=== PATIENT | female | born 1985 | race Caucasian/White ===

== ENCOUNTER 2021-09-26 06:30 | Day surgery (SDC) | payer BC ==
[2021-09-24 14:43] LABS: Absolute Lymphocytes (CBC) 2.6 K/uL (0.7-4.9); Basophils % 0.8 % (0-1.3); Hematocrit 35.9 % (36.0-45.0); Lymphocytes % 34.4 % (15.3-44.8); MPV 7.8 fL (7.6-11.3); RBC Red Blood Cell Count 4.58 M/uL (3.86-4.86)
[2021-09-24 14:46] LABS: ALT/SGPT 21 U/L (12-78); AST/SGOT 13 U/L (15-37); Albumin 3.6 g/dL (3.4-5.0); Alkaline Phosphatase 79 U/L (45-117); Amylase 40 U/L (25-115); BUN Blood Urea Nitrogen 9 mg/dL (7-18); Bicarbonate 27 mmol/L (21-32); Bilirubin Direct < 0.1 mg/dL (0-0.2); Bilirubin Total 0.2 mg/dL (0.2-1.0); Glucose Level 132 mg/dL (74-106); Potassium 3.7 mmol/L (3.5-5.1); Protein, Total 7.9 g/dL (6.4-8.2); Sodium Level 142 mmol/L (136-145)
[2021-09-26 06:44] LABS: Specific Gravity 1.015 (1.005-1.030)
[2021-09-26] MEDS ORDERED: Ringers Lactate 1,000 ML IV ONE (06:44)
[2021-09-26] MEDS ORDERED: propofoL 200 MG/20 ML VIAL IV ONE (06:56)
[2021-09-26] MEDS ORDERED: MIDAZOLAM HCL 2 MG/2 ML INJ ONE (06:56)
[2021-09-26] MEDS ORDERED: LIDOCAINE 1% MPF 2 ML AMPULE ONE (06:56)
[2021-09-26] MEDS ORDERED: FENTANYL CITR 100 MCG/2 ML ONE ×2 (06:56→08:40)
[2021-09-26] MEDS ORDERED: ROCURONIUM 50 MG/5 ML VIAL IV ONE (07:02)
[2021-09-26] MEDS ORDERED: GLYCOPYRROLATE 0.2 MG/ML SYR ONE ×2 (07:02→08:02)
[2021-09-26] MEDS ORDERED: BUPIVACAINE 0.5% PF 10 ML VIAL ONE (07:04)
[2021-09-26] MEDS: CEFOXITIN/NS 1gm 1 GM/50 ML BAG ONE ×2 (07:08→07:50)
[2021-09-26] MEDS ORDERED: ACETAMINOPHEN 500 MG TAB ONE (07:16)
[2021-09-26] MEDS ORDERED: CELECOXIB 100 MG CAPSULE ONE (07:16)
[2021-09-26] MEDS ORDERED: KETOROLAC 30 MG/ML INJ ONE (07:46)
[2021-09-26] MEDS ORDERED: dexAMETHasone 10 MG/ML VIAL ONE (07:46)
[2021-09-26] MEDS ORDERED: NEOSTIGMINE 1 MG/ML -5 ML ONE (08:40)
[2021-09-26] MEDS: HYDROMORPHONE HCL 1 MG/ML INJ ONE ×4 (09:06→09:21)
[2021-09-26 09:25] VITALS: O2SAT 98
[2021-09-26] MEDS ORDERED: HYDROMORPHONE HCL 1 MG/ML INJ ONE (09:28)
[2021-09-26 09:44] VITALS: TEMP 97.4
[2021-09-26] MEDS ORDERED: HYDROCODONE/APAP 7.5/325 MG TAB ONE (10:33)
--- NOTE | 2021-09-26 10:35 | OP ---
Date of Procedure: 09/26/2021 Surgeon: Jonathan Self MD [employer] Developer: ANI Jacobs. Preoperative Diagnoses: Chronic cholecystitis and cholelithiasis. Postoperative Diagnoses: Chronic cholecystitis and cholelithiasis with adhesions. Procedures Performed: Laparoscopic cholecystectomy and lysis of adhesions. Estimated Blood Loss: Minimal. Specimen: Gallbladder. Finding: As above. Anesthesia: General. Complications: None. Disposition: The patient tolerated the procedure in stable condition and taken to Recovery in good g eneral condition. Procedure In Detail: The patient was patient brought to the OR, placed in supine position. General anesthesia begun. The patient was prepped and draped in the usual sterile fashion. Marcaine 0.5% wa s infiltrated locally for postop pain control. A 15 blade was used to make a 1 cm infraumbilical mid line incision. Subcutaneous tissue was divided. Fascia was identified, divided. A #1 Vicryl stay s uture was placed. Peritoneal cavity entered with sharp and blunt dissection. A 12 mm trocar was rolo graeme into the peritoneal cavity under direct vision. Pneumoperitoneum was established. Three 5 mm tr ocars were placed, 1 in the epigastrium just to the right of midline and 2 in the right subcostal reg ion. Laparoscopy revealed extensive adhesions to the gallbladder and the liver near by and these wer e taken down with sharp and blunt dissection and cautery, and bleeding was controlled with cautery. Then, fundus was identified and retracted superiorly. Approximately 10 minutes of lysis of adhesion was performed and then the fundus was retracted superiorly. Infundibulum was identified and retracte d inferolaterally. Cystic duct and cystic artery were clearly identified with sharp and blunt dissec tion. Clips were placed. Both structures were divided. Cautery was used to remove the gallbladder from the liver bed. Bleeding on the liver bed was controlled with cautery. Gallbladder was retrieve d through the umbilicus via an EndoCatch bag. Right upper quadrant was irrigated. Effluent was sofia r. No evidence of bleeding or bile leakage appreciated. Subsequently, all trocars were removed unde r direct vision. Stay sutures were tied to each other to approximate the fascial defect. The subcut aneous wounds were irrigated. Bleeding controlled with cautery. A 3-0 chromic used to approximate t he subcutaneous tissue and close the skin. Sterile dressing applied. The patient was awakened and t aken to Recovery in good general condition. Discharge Note: The patient will go to Day Surgery and home when stable. Disposition: Home. Condition: Stable. Discharge Instructions: Resume home medications and diet. Activity as tolerated. No heavy lifting. Remove outer dressing in 2 days. Shower. Keep wound clean and dry. Keep Steri-Strips on at all t imes. Incentive spirometry as ordered. Tylenol No.3 one tablet p.o. q.4 p.r.n. pain. Follow up in my office in 1 week. Call for appointment. /MODL Voice ID: [id number] Report ID: [id number]
[2021-09-26 10:55] VITALS: BP 155/87
== END 2021-09-26 11:11 | disposition home or self-care (01) ==
LOC: OR 06:30
PROVIDERS: ATTEND Surgery
PROC: 0FN44ZZ Release Gallbladder, Percutaneous Endoscopic Approach (ICD-10-PCS; 2021-09-26)
PROC: 0FN04ZZ Release Liver, Percutaneous Endoscopic Approach (ICD-10-PCS; 2021-09-26)
PROC: 0FT44ZZ Resection of Gallbladder, Percutaneous Endoscopic Approach (ICD-10-PCS; principal; 2021-09-26 07:30)
DX: K80.10 Calculus of gallbladder with chronic cholecystitis without obstruction (principal); Z20.822 Contact with and (suspected) exposure to COVID-19
CPT/HCPCS: 85025; 80048; 36415; 82150; 81025; 80076; 88304; 47562; 49329; U0003; J2704; J2250; J3010 ×2; J1100; J1170 ×3; J2710; J7120; J0694